=== PATIENT | female | born 1990 | race Caucasian/White ===

== ENCOUNTER 2016-07-01 22:17 | Emergency (ER) | payer OTHER ==
[~2016-07-01] VITALS: Ht 172.7 cm; Wt 95.3 kg
[~2016-07-01 22:17] MED LIST: ADVAIR DISKUS 21 DSK INH; ALBUTEROL SULFAT3 M1 INH; BACTRIM DS 8001 TAB PO; CIPRO500 M1 PO; DOXYCYCLINE MO100 MG PO; NUVARING1 ICR; PROAIR HFA0.09 MG/Ac INH; PYRIDIUM100 M1 PO
[2016-07-01 22:38] VITALS: BP 167/70
[2016-07-01] MEDS ORDERED: PROVENTIL HFA6.7 GM INH (22:41)
[2016-07-01] MEDS ORDERED: ADVAIR 250-501 EACH INH (22:42)
--- NOTE | 2016-07-01 23:23 | ED PSYCHIATRIC COMPLAINT ---
History of Present Illness General Chief Complaint: Psychiatric Related Complaint Stated Complaint: ANXIETY ATTACK Source: patient, BOYFRIEND Exam Limitations: no limitations Vital Signs & Intake/Output Vital Signs & Intake/Output Vital Signs Date Time Temp Pulse Resp B/P B/P Pulse O2 O2 Flow FiO2 Mean Ox Delivery Rate 07/01 2242 100 07/01 2238 98.1 106 25 167/70 100 Room Air Allergies Coded Allergies: clarithromycin (Intermediate, HIVES 07/04/15) Reconcile Medications Albuterol Sulfate (Proventil Hfa) 90 MCG HFA.AER.AD 2 PUF INH Q4 PRN ASTHMA ( Reported) Fluticasone/Salmeterol (Advair 250-50 Diskus) 250 MCG-50 MCG/DOSE BLST.W.DEV 1 PUF INH BID ASTHMA (Reported) Triage Note: BIBA C/O PANIC ATTACK. PT CAME VOLUNTARILY, REQUESTING MEDS "TO HELP ME SLEEP TONIGHT," REPORTING "I JUST HAVE A LOT OF STRESS WITH MY DAUGHTER AND MY BOYFRIEND AND MY APARTMENT." DENIES SI/HI. REPORTS HX OF PANIC ATTACKS, DENIES ANY MEDS, DENIES ETOH/DRUGS. Triage Nurses Notes Reviewed? yes Onset: Abrupt Duration: day(s):, continues in ED, intermittent Timing: recent history Severity: severe : No Patient currently breastfeeds: No HPI: Patient presents for evaluation of severe anxiety. Patient states that she has had a number of smaller anxiety episodes recently but tonight, beginning at about 8:30 PM, she states she had a very severe anxiety episode with shortness of breath and crying. Patient states she's been feeling very emotional and overwhelmed. She denies suicidal ideation however. She denies alcohol or drug use. Past History Travel History Traveled to [place] past 21 day No Medical History Any Pertinent Medical History? see below for history Neurological: NONE EENT: NONE Cardiovascular: NONE Respiratory: asthma Gastrointestinal: NONE Hepatic: NONE Renal: NONE Musculoskeletal: NONE Psychiatric: anxiety, PANIC ATTACK Endocrine: NONE Blood Disorders: NONE Cancer(s): NONE DOOR TECHNICIAN/Reproductive: NONE Tetanus Vaccine: 04/15/12 Surgical History Surgical History: non-contributory Psychosocial History Who do you live with Mother Services at Home None What is your primary language [place] Tobacco Use: Current Daily Use Daily Tobacco Use Amount/Type: => 5 Cigarettes daily ETOH Use: denies use Family History Hx Contributory? No Review of Systems Review of Systems Constitutional: Reports: no symptoms. EENTM: Reports: no symptoms. Respiratory: Reports: no symptoms. Cardiovascular: Reports: no symptoms. GI: Reports: no symptoms. Genitourinary: Reports: no symptoms. Musculoskeletal: Reports: no symptoms. Skin: Reports: no symptoms. Neurological/Psychological: Reports: see HPI. Hematologic/Endocrine: Reports: no symptoms. Immunologic/Allergic: Reports: no symptoms. All Other Systems: Reviewed and Negative Physical Exam Physical Exam General Appearance: SEE BELOW Neurological/Psychiatric: SEE BELOW Comments: General: Alert, calm, cooperative Head: Normocephalic, atraumatic Eyes: Normal inspection, no nystagmus, EOMI Ears: Normal inspection Nose: Normal inspection Throat: Moist mucosa Neck: Supple, no goiter Heart: Regular rate and rhythm, no murmurs rubs or gallops Lungs: Clear to auscultation bilaterally with good air entry Abdomen: Soft nontender nondistended, normal bowel sounds Chest: Nontender Extremities: Normal range of motion grossly, mild tremors present, no cyanosis clubbing or edema of the upper extremities Neurologic: cranial nerves II through XII grossly intact, speech clear, gait normal Psychiatric: No apparent delusions or hallucinations, no pressured speech or thought blocking, emotionally labile with frequent weeping SAD PERSONS Done? patient not suicidal Progress Differential Diagnosis: ANXIETY, BIPOLAR DISORDER, DRUG USE Plan of Care: Orders Procedure Date/time Status URINE DRUG SCREEN FOR ER ONLY 07/01 2322 Active THYROID STIMULATING HORMONE 07/01 2322 Active ETHANOL 07/01 2322 Active CBC WITHOUT DIFFERENTIAL 07/01 2322 Active BASIC METABOLIC PANEL 07/01 2322 Active ED CRISIS PSYCH CONSULT 07/01 2322 Active Comments: 07/01/2016 11:46:34 PM Luanne has asked to go home. She states she is feeling better and is feeling somewhat guilty about leaving her daughter home without her. She states she's had a lot of life stressors recently including interpersonal issues and financial issues. She is now much more calm and denied suicide ideation. I feel she is stable for discharge and follow-up as an outpatient with a psychiatrist (she already has a psychiatrist in mind). Departure Departure Disposition: HOME OR SELF CARE Condition: Stable Clinical Impression Primary Impression: Anxiety Referrals: EVELYN CELESTIN APRN (PCP/Family) Departure Forms: Customer Survey General Discharge Information Prescriptions: Current Visit Scripts Alprazolam (Xanax) 1 TAB PO BIDP PRN anxiety #10 TAB
[2016-07-01] MEDS ORDERED: XANAX0.25 M1 PO (23:48)
== END 2016-07-02 00:02 ==
LOC: ERH 22:17
DX: F41.9 Anxiety disorder, unspecified (principal); R06.02 Shortness of breath
CPT/HCPCS: 80307; G0480